=== PATIENT | male | born 1995 | race Two or more races ===

== ENCOUNTER 2019-03-29 15:06 | Emergency (ER) | payer MEDICARE, MEDICAID ==
[~2019-03-29] VITALS: Ht 172.7 cm; Wt 71.7 kg
--- NOTE | 2019-03-29 15:06 | NUR ---
BIB [facility], EDEMA, FACE AND SCALP, PT W TRACHEOSTOMY HOOKED TO T-PIECE AT 2LPM OF O2. TO ER BED 8, HOOKED TO HEALTH CARE COACH, RT AT BEDSIDE, CHANGED TO GOWN, PROVIDED W WARM BLANKET, DR GORMAN AT BEDSIDE
[2019-03-29] MEDS ORDERED: ACETAMINOPHEN 650 MG/20.3 ML UDC PEG STA (15:13)
[2019-03-29] MEDS ORDERED: VANCOMYCIN 1 GM in IV D5W 250 ML IV ONE (15:30)
[2019-03-29] MEDS ORDERED: CEFEPIME 1 GM in IV D5W 50 ML IV ONE (15:30)
[2019-03-29] MEDS ORDERED: IV NS 0.9% 1,000 ML BAG IV ONE (15:30)
[2019-03-29 15:31] LABS: BASOPHILS # (AUTO) 0.1 /CMM (0.0-0.2); BASOPHILS % (AUTO) 0.6 % (0.0-2.0); EOSINOPHILS % (AUTO) 2.2 % (0.0-6.0); HEMATOCRIT 30 % (39-51); HEMOGLOBIN 10.3 g/dL (13.5-17.5); LYMPHOCYTES # (AUTO) 0.9 /CMM (0.8-4.8); LYMPHOCYTES % (AUTO) 8.9 % (20.0-44.0); MEAN CORPUSCULAR HGB CONC 35 g/dl (31.0-36.0); MEAN CORPUSCULAR VOLUME 92 fL (80-96); MONOCYTES # (AUTO) 0.9 /CMM (0.1-1.30); MONOCYTES % (AUTO) 9.5 % (2.0-12.0); NEUTROPHILS # (AUTO) 7.6 /CMM (1.8-8.9); NEUTROPHILS % (AUTO) 78.8 % (43.0-81.0); PLATELET COUNT (AUTO) 421 /CMM (150-450); RED BLOOD CELL COUNT(AUTO) 3.22 MIL/uL (4.5-6.0); WHITE BLOOD COUNT (AUTO) 9.6 K/uL (4.3-11.0)
[2019-03-29] MEDS ORDERED: ACETAMINOPHEN 650 MG/20.3 ML UDC ONE ×2 (15:32→21:22)
[2019-03-29 15:37] LABS: CALCIUM, SERUM 8.9 mg/dL (8.5-10.1); CREATININE 0.6 mg/dL (0.6-1.3); POTASSIUM 3.9 mmol/L (3.5-5.1)
--- NOTE | 2019-03-29 15:52 | NUR ---
WHEELED OUT VIA [facility] FOR CT SCAN.
--- NOTE | 2019-03-29 16:15 | NUR ---
CALLED [facility] AND SPOKE WITH RJ. SHE STATED SHE WILL CONTACT DR ERVIN AND HE WILL CALL US BACK SHORTLY.
[2019-03-29] MEDS ORDERED: APIX2.5T PO (16:23)
[2019-03-29] MEDS ORDERED: LACT-96 GT (16:23)
[2019-03-29] MEDS ORDERED: ACET-73 PO (16:23)
[2019-03-29] MEDS ORDERED: POTA20TA83 GT (16:23)
[2019-03-29] MEDS ORDERED: ACET-73 GT (16:23)
[2019-03-29] MEDS ORDERED: ONDA4TAB5 PO (16:23)
[2019-03-29] MEDS ORDERED: BISA10SU61 RC (16:23)
[2019-03-29] MEDS ORDERED: MAGN400O6 GT (16:23)
[2019-03-29] MEDS ORDERED: LEVE1000 GT (16:23)
[2019-03-29] MEDS ORDERED: DOCU-270 GT (16:23)
[2019-03-29] MEDS ORDERED: [UNRECOGNIZED DRUG - CODE] GT (16:23)
[2019-03-29] MEDS ORDERED: METO25TA6 PO (16:23)
[2019-03-29] MEDS ORDERED: ALBU2.5V38 IH (16:23)
[2019-03-29] MEDS ORDERED: HYDR-4354 GT (16:23)
[2019-03-29] MEDS ORDERED: CHLO473M2 MM (16:23)
[2019-03-29] MEDS ORDERED: CRAN450C GT (16:23)
[2019-03-29] MEDS ORDERED: HYDR-4354 PO (16:23)
[2019-03-29] MEDS ORDERED: NA P133E RC (16:23)
[2019-03-29] MEDS ORDERED: LORA2TAB95 GT (16:23)
[2019-03-29] MEDS ORDERED: FERR325T23 GT (16:23)
[2019-03-29] MEDS ORDERED: MULT1TAB73 GT (16:23)
[2019-03-29] MEDS ORDERED: ZINC220T GT (16:23)
[2019-03-29] MEDS ORDERED: HEPA100D33 SQ (16:23)
--- NOTE | 2019-03-29 16:32 | NUR ---
RT AT BEDSIDE FOR SUCTIONING OF TRACHEOSTOMY
--- NOTE | 2019-03-29 17:20 | NUR ---
URINE SAMPLE COLLECTED VIA IN AND OUT CATHETER AND SENT TO LAB
[2019-03-29 18:31] LABS: APPEARANCE,URINE Cloudy (CLEAR); BILIRUBIN,URINE Negative (NEGATIVE); BLOOD, URINE Negative Ery/uL (NEGATIVE); COLOR,URINE Yellow (YELLOW); KETONES,URINE Negative (NEGATIVE); LEUKOCYTE ESTERASE ,URINE Negative (NEGATIVE); NITRITE, URINE Negative (NEGATIVE); PH,URINE 7.5 (5.0-8.0); PROTEIN,URINE 30 mg/dl (NEGATIVE); UGLUCOSE Negative (NEGATIVE)
--- NOTE | 2019-03-29 18:49 | NUR ---
PER RADHA FROM [facility] [place], THERE ARE NO ICU BEDS AVAILABE AND COULD TAKE HOURS. WILL UPDATE SOON PT HAS A BED.
[2019-03-29 19:07] LABS: BACTERIA,URINE Few /HPF (None Seen); RBC,URINE 0-2 /HPF (0-2); SQUAMOUS EPITHELIAL CELL,UR Few /HPF (None Seen); URINE AMORPHOUS URATE Many /HPF (None Seen); WBC,URINE 0-2 /HPF (0-3)
--- NOTE | 2019-03-29 19:25 | NUR ---
RECEIVED REPORT FROM GUZMAN DILLON FOR [facility]. PT IS AAOX0, ON TRACH, NOTED ELEVATED PULSE, DRESSING APPLIED, AWAITING TRANSFER DETAILS FROM [facility] [place].
--- NOTE | 2019-03-29 19:26 | NUR ---
REPORT GIVEN TO BRADLEY LOCKHART RN FOR [facility]
--- NOTE | 2019-03-29 19:30 | NUR ---
DRESSING APPLIED NOTED BLEEDING, DR. GORMAN AWARE.
--- NOTE | 2019-03-29 21:14 | NUR ---
ASSESSED PT ON BED NOTED ELEVATED PULSE, NOT IN RESPIRATORY DISTRESS, AWAITING CALL BACK FROM [facility] FOR TRANSFER.
[2019-03-29] MEDS ORDERED: ACETAMINOPHEN ES 500 MG TABLET ONE (21:19)
--- NOTE | 2019-03-29 21:20 | NUR ---
RAJENDRA CISNEROS AT [facility] PT DOES NOT HAVE BED YET WILL CALL BACK WITH UPDATE.
[2019-03-29] MEDS ORDERED: ACETAMINOPHEN 650 MG/20.3 ML UDC GT ONE (21:30)
--- NOTE | 2019-03-29 22:07 | NUR ---
TRANSFER INFO: PT GOING TO [facility] DIRECT ADMIT TO [id number] BED 1 RN FOR REPORT [phone] EXT [phone] [id number] ETA [id number] TRIP#[id number]
--- NOTE | 2019-03-29 22:24 | NUR ---
REPORT GIVEN TO GUZMAN LOCKHART OF [facility] FOR [facility]. AWAITING AMBULANCE FOR TRANSFER ETA [id number].
[2019-03-29 22:52] VITALS: BP 132/82
--- NOTE | 2019-03-29 23:10 | NUR ---
REPORT GIVEN TO EMT FOR PT TRANSFER TO [facility].
== END 2019-03-29 23:25 | disposition short-term general hospital (02) ==
LOC: ER 15:16
DX: T81.44XA Sepsis following a procedure, initial encounter (principal); G93.41 Metabolic encephalopathy; J96.10 Chronic respiratory failure, unspecified whether with hypoxia or hypercapnia; G40.909 Epilepsy, unspecified, not intractable, without status epilepticus; Z98.890 Other specified postprocedural states; Z79.899 Other long term (current) drug therapy
CPT/HCPCS: 36415; 70450; 71045; 80048; 81001; 83605; 85025; 85730; 87040 ×2; 87086; 93005; 96365; 96367; 99285; A4217; J0692; J3370; J7030; J7060 ×2; 81000-TC